=== PATIENT | female | born 1965 | race Caucasian/White ===

== ENCOUNTER → 2018-09-03 | Day surgery (SDC) | payer OTHER ==
[~2018-09-03] MED LIST: FLUO20CA8 PO; IV RINGERS,LACTATED 1000ML 1,000 ML IV SCH; LIDOCAINE 2% PF 5 ML VIAL. ONE; PROPOFOL 10 MG/ML (20ML) VIAL. IV ONE; PROPOFOL 20 ML IV ONE
[2018-09-03 16:47] VITALS: BP 126/59
--- NOTE | 2018-09-04 13:46 | HP ---
ADMIT DATE: 09/03/2018 REFERRING PHYSICIAN: Dr. Hudson Diaz. REASON FOR CONSULTATION: Dysphagia. HISTORY OF PRESENT ILLNESS: A 52-year-old female with past medical history significant for reflux, is seen with dysphagia for solids, mainly in the subcervical location. She has lost 8 pounds in the past month. Pepcid and Prilosec have been taken with modest improvement in her symptoms. Risk factors for reflux are positive for caffeine, but negative for alcohol and nicotine. No bleeding has been encountered. With continued symptoms, she requests additional evaluation. FAMILY HISTORY: Nonrevealing as she is adopted. PAST MEDICAL HISTORY: Significant for reflux. ALLERGIES: MORPHINE. MEDICATIONS: Include Prilosec. SOCIAL HISTORY: She is a nonsmoker, nondrinker. PAST SURGICAL HISTORY: Significant for hysterectomy and endometriosis. REVIEW OF SYSTEMS: Per records. PHYSICAL EXAMINATION: GENERAL: Reveals a well-nourished, well-developed female who is alert and cooperative, in no acute distress. VITAL SIGNS: Temperature 97.5, pulse 70, respirations 20. HEENT: Normocephalic and atraumatic head. Pupils and extraocular movements not tested. Sclerae anicteric. NECK: Supple. LUNGS: Clear. CARDIOVASCULAR: Reveals S1, S2 without S3, S4 or appreciable murmur. ABDOMEN: Soft abdomen, normal bowel sounds without appreciable hepatosplenomegaly. EXTREMITIES: Reveal no cyanosis, clubbing or edema. The infraumbilical hysterectomy incision is noted. IMPRESSION: Dysphagia with GERD. Differential includes achalasia, malignancy, Murillo's, peptic stricture, eosinophilic esophagitis, Schatzki ring, presbyesophagus. Therefore, recommend upper endoscopy with possible biopsy and dilatation. Risks, benefits of procedure including risk of hemorrhage and perforation during the operation have been discussed with the patient who is willing to proceed at this time. SON DEWITT MD DR: ROBERT/lesa JOB#: [id number] / [id number] ecc RECORDS, MEDICAL
--- NOTE | 2018-09-05 16:07 | PATHOLOGY ---
[facility] Accession Number: [id number] . 01 Material submitted: . esophagus - DISTAL ESOPHAGUS BIOPSY. Modifiers: distal . 01 Clinical history: . Dysphagia . 02 Diagnosis: Esophageal biopsies, distal esophagus: - Segments of hyperplastic squamous esophageal mucosa showing focal acute inflammation, ulceration, and acute inflammatory exudate, consistent with reflux esophagitis with ulceration. 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 02 Comment: Sections of the distal esophageal biopsy reveal segments of tangentially oriented, hyperplastic squamous esophageal mucosa showing focal ulceration, acute inflammation, and acute inflammatory exudate. There are a few scattered intraepithelial eosinophils. There are no viral inclusions identified. The findings are consistent with reflux esophagitis with ulceration. There is no evidence of Murillo's change, dysplasia, or malignancy. 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 02 Electronically signed: . Rafal Cuevas MD, Pathologist NPI- [id number] . 01 Gross description: . The specimen is received in formalin, labeled "Schimke, Jasmina, distal esophagus BX rule out Murillo's" and consists of multiple fragments of jolley-light brown tissue measuring 0.9 x 0.4 x 0.2 cm in aggregate which are entirely submitted in A1. (SDY; 09/04/2018) SYU/SYU . 02 Pathologist provided ICD-10: K20.9, K22.10, K21.0 . 02 CPT . 429166 Specimen Comment: A courtesy copy of this report has been sent to Specimen Comment: [phone], . Specimen Comment: Report sent to / DR STRONG Performed at: 01 [facility] [address], [place], [place] [id number] MD Julius Salvador MD Phone: [phone] Performed at: 02 [facility] [address] [place], [place] [id number] MD Rafal Cuevas MD Phone: [phone]
== END ==
LOC: SURG 15:39
PROVIDERS: ATTEND Internal Medicine Gastroenterology
DX: K21.0 Gastro-esophageal reflux disease with esophagitis (principal); K22.2 Esophageal obstruction; Z90.710 Acquired absence of both cervix and uterus; Z88.6 Allergy status to analgesic agent
CPT/HCPCS: 43239; 43450; 88305; J2001; J2704

== ENCOUNTER 2018-12-19 06:00 | Inpatient (IN) | payer OTHER ==
[2018-12-19] VITALS (10 sets, daily range): BP systolic 140–156; BP diastolic 64–82
[~2018-12-19] VITALS: Ht 175.3 cm; Wt 71.7 kg
[~2018-12-19 06:00] MED LIST changes: -IV RINGERS,LACTATED 1000ML 1,000 ML IV SCH; -LIDOCAINE 2% PF 5 ML VIAL. ONE; -PROPOFOL 10 MG/ML (20ML) VIAL. IV ONE; -PROPOFOL 20 ML IV ONE
[2018-12-19] MEDS ORDERED: BUPIVACAINE-EPI 0.5%-1:200000 MPF 30 ML VIAL. INJ ONE (06:30)
[2018-12-19] MEDS: IV RINGERS,LACTATED 1000ML 1,000 ML IV SCH ×2 (06:32→10:28)
[2018-12-19] MEDS ORDERED: HYDROmorphone 2 MG/ML VIAL IV PRN ×3 (07:00→10:30)
[2018-12-19] MEDS ORDERED: LIDOCAINE 1% PF 2 ML VIAL. ID PRN (07:00)
[2018-12-19] MEDS ORDERED: ONDANSETRON PF 4 MG/2 ML VIAL. IV PRN (07:00)
[2018-12-19] MEDS ORDERED: fentaNYL PF VIAL 100 MCG/2 ML VIAL IV PRN (07:00)
[2018-12-19] MEDS ORDERED: PROCHLORPERAZINE 10 MG/2 ML VIAL. IV PRN (07:00)
[2018-12-19] MEDS ORDERED: SURGICEL HEMOSTAT 4X8 EACH. ONE ×2 (07:01→08:34)
[2018-12-19] MEDS ORDERED: ROCURONIUM 50 MG/5 ML VIAL. ONE ×2 (07:09→08:40)
[2018-12-19] MEDS ORDERED: LIDOCAINE 2% PF 5 ML VIAL. ONE (07:09)
[2018-12-19] MEDS ORDERED: PROPOFOL 20 ML IV ONE (07:09)
[2018-12-19] MEDS ORDERED: ONDANSETRON PF 4 MG/2 ML VIAL. ONE (07:09)
[2018-12-19] MEDS ORDERED: FAMOTIDINE 20 MG/2 ML VIAL ONE (07:09)
[2018-12-19] MEDS ORDERED: DEXAMETHASONE SOD PHOS 4 MG/ML VIAL ONE (07:09)
[2018-12-19] MEDS ORDERED: SUCCINYLCHOLINE 200 MG/10 ML VIAL. ONE (07:09)
[2018-12-19] MEDS ORDERED: fentaNYL PF VIAL 100 MCG/2 ML VIAL ONE ×2 (07:10→08:19)
[2018-12-19] MEDS ORDERED: MIDAZOLAM HCL/PF 2 MG/2 ML VIAL. ONE (07:10)
[2018-12-19] MEDS ORDERED: SEVOFLURANE > 120 MINUTES. IH ONE (07:52)
[2018-12-19] MEDS ORDERED: ceFAZolin 2GM PREMIX 2 GM/50 ML BAG IV ONE (08:00)
[2018-12-19] MEDS ORDERED: PHENYLEPHRINE in 0.9% NACL PF 1 MG/10 ML SYRINGE. IV ONE (08:06)
[2018-12-19] MEDS ORDERED: NEOSTIGMINE 10 MG/10 ML VIAL. ONE (09:34)
[2018-12-19] MEDS ORDERED: GLYCOPYRROLATE 1 MG/5 ML VIAL. ONE ×2 (09:34→09:46)
[2018-12-19] MEDS ORDERED: KETOROLAC 30 MG/ML VIAL. ONE (09:35)
[2018-12-19] MEDS: IV NORMAL SALINE 1000ML BAG 1,000 ML IV SCH (10:11)
--- NOTE | 2018-12-19 10:11 | PDOC4 ---
Operative Note Operative Note Operative Note Preoperative Diagnosis: Hiatal hernia with gastroesophageal reflux disease Postoperative Diagnosis: Same Procedure: Laparoscopic repair of hiatal hernia with Deshawn fundoplication Surgeon: Kareem Danielson.: Dr. Bauer Anesthesia: Gen. Estimated Blood Loss: 25 mL Specimen: perigastric tissue, GE junction tissue Drains: None Complications: None Indications: The patient is a 53 who is referred following the GI evaluation for reflux symptoms and dysphagia. Evaluation identified a hiatal hernia with the entire stomach present in the chest. She was referred for surgical repair. The risks of surgery were discussed which include bleeding, infection, recurrent herniation, gastric or esophageal perforation, visceral injury, recurrent reflux, gas bloat syndrome, dysphasia, potential need for additional surgeries or procedures. She understands and would like to proceed. Description: The patient was taken to the operating room and placed supine on the operating table. General anesthesia was performed. The patient was then placed in lithotomy. The abdomen was prepped with ChloraPrep and draped in a standard surgical fashion. A small incision was made superior to and to the patient's left of the umbilicus through which a visualized 5 mm trocar was inserted. A pneumoperitoneum was then created and the laparoscope was introduced. In the right lateral abdomen a 12 mm trocar was inserted through which a soft fan retractor was used to elevate the left lobe of the liver. In the right upper quadrant a 5 mm trocar was inserted. In the left upper quadrant an 11 mm trocar was inserted while in the left lateral abdomen a 5 mm trocar was inserted. Attention was then directed to the diaphragmatic hiatus. A small hiatal hernia was present. The pars flacida was opened with the harmonic scalpel and dissection was continued to the denny. We mobilized the distal esophagus away from the denny. We continued mobilizing superiorly well into the mediastinum. The gastrocolic omentum was then opened with the Harmonic scalpel in the upper portion of the greater curvature. We then freed up the upper part of the greater curvature and fundus using the harmonic scalpel. Large blood vessels were doubly clipped and divided. The dissection continued all the way back up to the left denny and any remaining splenic attachments were also mobilized. There was an oozing spot near the spleen which was controlled with surgicel. A Carola drain was then placed around the esophagus at the GE junction and clips were applied holding the [place] in place. With retraction on the Carola we were able to continue freeing up any remaining attachments particularly in the posterior location. At this point the GE junction was well within the abdominal cavity. The left and right denny were then reapproximated with interrupted 2-0 silk sutures using the Endo Stitch device. Stitches were applied both anteriorly and posteriorly allowing for closure of the hernia defec t. The fundus was then wrapped around in a 360� fashion creating the fundoplication. A shoeshine maneuver was used to ensure no twists or kinks. An initial 2-0 Ethibond suture was used securing the fundic lips together. Another suture was placed superior to this which incorporated a small bite of the anterior esophagus. An additional suture was then placed inferiorly completing the fundoplication. At this point hemostasis was good, the hernia was well repaired, and the fundoplication was intact with a nice orientation. The 11 and 12 mm trochars were then removed and the fascia closed with 0 Vicryl using an Endo Close. The remaining ports were removed and the pneumoperitoneum was relieved. Skin at all incisions was closed with 4-0 Monocryl. Steri-Strips and dressings were applied. The patient tolerated the procedure well. SON DE JESUS MD Dec 19, 2018 10:11
[2018-12-19] MEDS ORDERED: NALOXONE 0.4 MG/ML VIAL. IV PRN (10:15)
[2018-12-19] MEDS ORDERED: 0.9 % SODIUM CHLORIDE 10 ML DISP.SYRIN. IV PRN (10:15)
[2018-12-19] MEDS: fentaNYL PF VIAL 100 MCG/2 ML VIAL IV PRN ×2 (10:29→11:03)
[2018-12-19] MEDS: IV 1/2 NORMAL SALINE 1,000 ML IV SCH ×2 (11:52→20:27)
[2018-12-19] MEDS: HYDROmorphone 2 MG/ML VIAL IV PRN ×5 (13:19→22:55)
[2018-12-19] MEDS ORDERED: PHENOL ORAL SPRAY 177ML BOTTLE. PO PRN (15:30)
[2018-12-19] MEDS: ONDANSETRON PF 4 MG/2 ML VIAL. IV PRN (20:20)
[2018-12-20] MEDS: HYDROmorphone 2 MG/ML VIAL IV PRN ×5 (02:03→16:15)
[2018-12-20 03:00] VITALS: BP 148/92
[2018-12-20 07:00] VITALS: BP 140/79
[2018-12-20] MEDS: IV 1/2 NORMAL SALINE 1,000 ML IV SCH ×2 (07:07→16:14)
--- NOTE | 2018-12-20 08:57 | PDOC ---
SYLVESTER BREWSTER APRN 12/20/18 0857: SURGICAL PROGRESS NOTE Subjective no reflux symptoms headache, ear ache shoulder pain no n/v Vital Signs Vital Signs Date Time Temp Pulse Resp B/P (MAP) Pulse Ox O2 Delivery O2 Flow Rate FiO2 12/20/18 07:54 18 Nasal Cannula 2.0 12/20/18 07:00 98.4 77 140/79 (99) 92 98.4 I&O Intake and Output 12/20/18 07:00 Intake Total 1150 ml Output Total 325 ml Balance 825 ml Intake IV Total 1150 ml Output Urine Total 300 ml Estimated Blood Loss 25 ml # Voids 4 General: Alert, Oriented X3, Cooperative, No acute distress Abdomen: Soft, Other (ND, lap sites dressings dry) Assessment/Plan s/p ian fundoplication clears, no carbonation oral pain meds increase activity SNO DE JESUS MD 12/20/18 1532: SURGICAL PROGRESS NOTE Assessment/Plan agree with above SYLVESTER BREWSTER APRN Dec 20, 2018 08:57 SON DE JESUS MD Dec 20, 2018 15:32
[2018-12-20] MEDS: HYDROcodon/APAP 7.5/325MG ORAL 15 ML SOLUTION PO PRN ×2 (09:09→17:49)
[2018-12-20] MEDS: IV NORMAL SALINE 1000ML BAG 1,000 ML IV SCH (10:11)
[2018-12-20 11:00] VITALS: BP 134/59
[2018-12-20] MEDS ORDERED: ZOLPIDEM 5 MG TABLET. PO PRN (14:00)
[2018-12-20 15:00] VITALS: BP 139/74
[2018-12-20] MEDS: ONDANSETRON PF 4 MG/2 ML VIAL. IV PRN (16:16)
[2018-12-20 19:00] VITALS: BP 130/70
[2018-12-20] MEDS ORDERED: ACETAMINOPHEN 325 MG TABLET. PO PRN (20:15)
[2018-12-20] MEDS: KETOROLAC 30 MG/ML VIAL. IV PRN (20:52)
[2018-12-20 23:00] VITALS: BP 142/65
[2018-12-21] MEDS: IV 1/2 NORMAL SALINE 1,000 ML IV SCH (01:23)
[2018-12-21 02:53] VITALS: BP 124/78
[2018-12-21] MEDS: HYDROcodon/APAP 7.5/325MG ORAL 15 ML SOLUTION PO PRN ×2 (04:18→13:46)
[2018-12-21 07:00] VITALS: BP 138/70
[2018-12-21] MEDS: KETOROLAC 30 MG/ML VIAL. IV PRN (07:36)
[2018-12-21] MEDS ORDERED: FLUoxetine HCL 20 MG CAPSULE PO SCH (09:00)
[2018-12-21] MEDS ORDERED: CETIRIZINE HCL 10 MG TABLET. PO PRN (09:15)
[2018-12-21 11:00] VITALS: BP 132/72
--- NOTE | 2018-12-21 12:37 | PDOC ---
PROGRESS NOTES Subjective Subjective getting better, no reflux symptoms, only complaint is headache Objective Objective Vital Signs Date Time Temp Pulse Resp B/P (MAP) Pulse Ox O2 Delivery O2 Flow Rate FiO2 12/21/18 11:00 98.8 73 18 132/72 (92) 93 Room Air 98.8 12/21/18 04:18 2.0 Intake and Output 12/21/18 07:00 Intake Total 2145 ml Balance 2145 ml Intake Oral 770 ml IV Total 1375 ml # Voids 8 # Bowel Movements 1 Physical Exam Abdomen: Soft Assessment Assessment POD 2 lap ian, HH repair Plan Plan of Care discharge Comment Review of Relevant I have reviewed the following items kriss (where applicable) has been applied. Medications Current Medications Bupivacaine HCl/ Epinephrine Bitart (Sensorcain-Epi 0.5%-1:084859 Mpf) 30 ml 1X ONCE INJ Last administered on 12/19/18at 09:45; Start 12/19/18 at 06:30; Stop 12/19/18 at 06:31; Status DC Ondansetron HCl (Zofran) 4 mg PRN Q6HRS PRN IV NAUSEA/VOMITING; Start 12/19/18 at 07:00; Stop 12/20/18 at 06:59; Status DC Fentanyl Citrate (Fentanyl 2ml Vial) 25 mcg PRN Q5MIN PRN IV MILD PAIN 1-3; Start 12/19/18 at 07:00; Stop 12/20/18 at 06:59; Status DC Fentanyl Citrate (Fentanyl 2ml Vial) 50 mcg PRN Q5MIN PRN IV MODERATE TO SEVERE PAIN Last administered on 12/19/18at 11:03; Start 12/19/18 at 07:00; Stop 12/20/18 at 06:59; Status DC Ringer's Solution 1,000 ml @ 30 mls/hr Q24H IV Last administered on 12/19/18at 10:29; Start 12/19/18 at 07:00; Stop 12/19/18 at 18:59; Status DC Lidocaine HCl (Xylocaine-Mpf 1% 2ml Vial) 2 ml PRN 1X PRN ID PRIOR TO IV START; Start 12/19/18 at 07:00; Stop 12/20/18 at 06:59; Status DC Hydromorphone HCl (Dilaudid) 0.5 mg PRN Q10MIN PRN IV SEV PAIN, Second choice; Start 12/19/18 at 07:00; Stop 12/20/18 at 06:59; Status DC Prochlorperazine Edisylate (Compazine) 5 mg PACU PRN PRN IV NAUSEA, MRX1; Start 12/19/18 at 07:00; Stop 12/20/18 at 06:59; Status DC Cefazolin Sodium/ Dextrose 50 ml @ 100 mls/hr 1X PREOP PRN IV PRIOR TO PROCEDURE Last administered on 12/19/18at 08:00; Start 12/19/18 at 06:00; Stop 12/19/18 at 18:00; Status DC Cellulose (Surgicel Hemostat 4x8) 1 each STK-MED ONCE .ROUTE Last administered on 12/19/18at 08:38; Start 12/19/18 at 07:01; Stop 12/19/18 at 07:01; Status DC Propofol 20 ml @ As Directed STK-MED ONCE IV ; Start 12/19/18 at 07:09; Stop 12/19/18 at 07:09; Status DC Dexamethasone Sodium Phosphate (Decadron) 4 mg STK-MED ONCE .ROUTE ; Start 12/19/18 at 07:09; Stop 12/19/18 at 07:09; Status DC Famotidine (Pepcid Vial) 20 mg STK-MED ONCE .ROUTE ; Start 12/19/18 at 07:09; Stop 12/19/18 at 07:09; Status DC Lidocaine HCl (Lidocaine Pf 2% Vial) 5 ml STK-MED ONCE .ROUTE ; Start 12/19/18 at 07:09; Stop 12/19/18 at 07:10; Status DC Ondansetron HCl (Zofran) 4 mg STK-MED ONCE .ROUTE ; Start 12/19/18 at 07:09; Stop 12/19/18 at 07:10; Status DC Succinylcholine Chloride (Anectine) 200 mg STK-MED ONCE .ROUTE ; Start 12/19/18 at 07:09; Stop 12/19/18 at 07:10; Status DC Rocuronium [place] (Zemuron) 50 mg STK-MED ONCE .ROUTE ; Start 12/19/18 at 07:09; Stop 12/19/18 at 07:10; Status DC Fentanyl Citrate (Fentanyl 2ml Vial) 100 mcg STK-MED ONCE .ROUTE ; Start 12/19 at 07:10; Stop 12/19/18 at 07:10; Status DC Midazolam HCl (Versed) 2 mg STK-MED ONCE .ROUTE ; Start 12/19/18 at 07:10; Stop 12/19/18 at 07:10; Status DC Sevoflurane (Ultane) 90 ml STK-MED ONCE IH ; Start 12/19/18 at 07:52; Stop 12/19/18 at 07:52; Status DC Phenylephrine HCl (PHENYLEPHRINE in 0.9% NACL PF) 1 mg STK-MED ONCE IV ; Start 12/19/18 at 08:06; Stop 12/19/18 at 08:07; Status DC Fentanyl Citrate (Fentanyl 2ml Vial) 100 mcg STK-MED ONCE .ROUTE ; Start 12/19/18 at 08:19; Stop 12/19/18 at 08:19; Status DC Cellulose (Surgicel Hemostat 4x8) 1 each STK-MED ONCE .ROUTE Last administered on 12/19/18at 08:38; Start 12/19/18 at 08:34; Stop 12/19/18 at 08:35; Status DC Rocuronium [place] (Zemuron) 50 mg STK-MED ONCE .ROUTE ; Start 12/19/18 at 08:40; Stop 12/19/18 at 08:40; Status DC Neostigmine Methylsulfate (Bloxiverz) 10 mg STK-MED ONCE .ROUTE ; Start 12/19/18 at 09:34; Stop 12/19/18 at 09:34; Status DC Glycopyrrolate (Robinul) 1 mg STK-MED ONCE .ROUTE ; Start 12/19/18 at 09:34; Stop 12/19/18 at 09:34; Status DC Ketorolac Tromethamine (Toradol 30mg Vial) 30 mg STK-MED ONCE .ROUTE ; Start 12/19/18 at 09:35; Stop 12/19/18 at 09:35; Status DC Glycopyrrolate (Robinul) 1 mg STK-MED ONCE .ROUTE ; Start 12/19/18 at 09:46; Stop 12/19/18 at 09:46; Status DC Sodium Chloride (Normal Saline Flush) 3 ml QSHIFT PRN IV AFTER MEDS AND BLOOD DRAWS; Start 12/19/18 at 10:15 Sodium Chloride 1,000 ml @ 100 mls/hr Q10H IV Last administered on 12/21/18at 01:23; Start 12/19/18 at 10:11 Naloxone HCl (Narcan) 0.4 mg PRN Q2MIN PRN IV SEE INSTRUCTIONS; Start 12/19/18 at 10:15 Sodium Chloride 1,000 ml @ 25 mls/hr Q24H IV ; Start 12/19/18 at 10:11 Hydromorphone HCl (Dilaudid) 0.2 mg PRN Q2HRS PRN IV PAIN; Start 12/19/18 at 10:15 Ondansetron HCl (Zofran) 4 mg PRN Q6HRS PRN IV NAUESA, 1ST CHOICE Last administered on 12/20/18at 16:16; Start 12/19/18 at 10:15 Hydromorphone HCl (Dilaudid) 0.4 mg PRN Q2HRS PRN IV PAIN Last administered on 12/19/18 11:24; Start 12/19/18 at 10:30 Hydromorphone HCl (Dilaudid) 0.6 mg PRN Q2HRS PRN IV PAIN Last administered on 12/20/18 16:16; Start 12/19/18 at 10:30 Phenol (Chloraseptic) 1 spray PRN Q2HR PRN PO SORE THROAT Last administered on 12/19/18at 15:55; Start 12/19/18 at 15:30 Acetaminophen/ Hydrocodone Bitart (Lortab 7.5-325/ 15ml Oral Solution) 15 ml PRN Q6HRS PRN PO PAIN Last administered on 12/21/18at 04:18; Start 12/20/18 at 09:00 Cefazolin Sodium/ Dextrose (Ancef 2gm Premix) 2 gm STK-MED ONCE IV ; Start 12/19/18 at 08:00; Stop 12/20/18 at 12:59; Status DC Fluoxetine HCl (PROzac) 20 mg DAILY PO Last administered on 12/21/18at 09:40; Start 12/21/18 at 09:00 Zolpidem Tartrate (Ambien) 5 mg PRN QHS PRN PO INSOMNIA Last administered on 9/20/19at 20:52; Start 12/20/18 at 14:00 Ketorolac Tromethamine (Toradol 30mg Vial) 30 mg PRN Q6HRS PRN IV PAIN Last administered on 12/21/18at 07:36; Start 12/20/18 at 20:15; Stop 12/25/18 at 20:14 Acetaminophen (Tylenol) 650 mg PRN Q4HRS PRN PO MILD PAIN / TEMP; Start 12/20/18 at 20:15 Cetirizine HCl (ZyrTEC) 10 mg PRN DAILY PRN PO ALLERGIES Last administered on 12/21/18at 09:40; Start 12/21/18 at 09:15 Active Scripts Active Reported Fluoxetine Hcl 20 Mg Capsule 1 Cap PO DAILY Vitals/I & O Vital Sign - Last 24 Hours 12/20/18 12/20/18 12/20/18 12/20/18 15:00 16:16 17:06 17:49 Temp 98.8 98.8 Pulse 82 Resp 14 16 16 16 B/P (MAP) 139/74 (95) Pulse Ox 94 O2 Delivery Room Air Room Air Room Air Room Air 12/20/18 12/20/18 12/20/18 12/20/18 19:00 20:30 23:00 23:04 Temp 98.5 98.7 98.5 98.7 Pulse 83 60 Resp 16 16 14 B/P (MAP) 130/70 (90) 142/65 (90) Pulse Ox 92 92 92 O2 Delivery Nasal Cannula Nasal Cannula Nasal Cannula Nasal Cannula O2 Flow Rate 2.0 2.0 2.0 2.0 12/21/18 12/21/18 12/21/18 12/21/18 02:53 04:18 07:00 07:19 Temp 98.1 97.9 98.1 97.9 Pulse 85 76 Resp 16 16 18 18 B/P (MAP) 124/78 (93) 138/70 (92) Pulse Ox 93 90 O2 Delivery Nasal Cannula Nasal Cannula Room Air Room Air O2 Flow Rate 2.0 2.0 12/21/18 11:00 Temp 98.8 98.8 Pulse 73 Resp 18 B/P (MAP) 132/72 (92) Pulse Ox 93 O2 Delivery Room Air Intake and Output 12/20/18 12/20/18 12/21/18 15:00 23:00 07:00 Intake Total 320 ml 50 ml 1775 ml Balance 320 ml 50 ml 1775 ml SON DE JESUS MD Dec 21, 2018 12:37
--- NOTE | 2018-12-21 12:39 | DISCH ---
DISCHARGE INSTRUCTIONS Condition on Discharge Condition on Discharge: Unstable Activity After Discharge Activity Instructions for Disc: Other, see below (no lifting over 20 lbs) Diet after Discharge Diet after Discharge: GI Soft Follow-Up Follow up with: Dr De Jesus in 2 weeks, call for appt [phone] SON DE JESUS MD Dec 21, 2018 12:39
--- NOTE | 2018-12-21 12:40 | PDOC3 ---
Discharge Summary Visit Information Date of Admission: Dec 19, 2018 Date of Discharge: Dec 21, 2018 Admitting Diagnosis: Hiatal hernia with GERD Brief Hospital Course Allergies Allergies Coded Allergies Type Severity Reaction Last Updated Verified morphine Allergy Intermediate Hives 12/19/18 Yes Vital Signs Vital Signs Date Time Temp Pulse Resp B/P (MAP) Pulse Ox O2 Delivery O2 Flow Rate FiO2 12/21/18 11:00 98.8 73 18 132/72 (92) 93 Room Air 98.8 12/21/18 04:18 2.0 Brief Hospital Course Ms. Hawkins is a 53 old female who was admitted for surgery for repair of a hiatal hernia. She underwent a laparoscopic hiatal hernia repair with ian fundoplication on 12/19/18. Her postoperative course was uneventful and she was discharged on POD 2. Discharge Information Condition at Discharge: Improved Follow Up: Weeks (2 weeks) Disposition/Orders: D/C to Home Scheduled Fluoxetine Hcl (Fluoxetine Hcl) 20 Mg Capsule, 1 CAP PO DAILY for DEPRESSION, #90 Ref 1 (Reported) Entered as Reported by: Vashti Haywood on 09/03/18 1556 Last Taken: Unknown Dose on 12/18/18 Last Action: Continued on 12/20/18 1348 by YARIEL BALTAZAR SCOTT D MD Dec 21, 2018 12:40
--- NOTE | 2018-12-21 14:15 | NUR ---
Discharge orders placed. Discharge medications/instructions discussed with pt/pt . Rx hydrocodone elixer 7.5/325 given to pt . Explained rx will need to be filled for pain management. Verbalized/wrote next pain medication due time. Pt verbalized understanding. Discussed pt will need to make f/u appt with Dr. Serna x2 weeks. Dr. Serna card with phone number and location given to pt . Discussed s/s infection/incision care. Pt verbalized understanding. IV removed by KELVIN Bermeo without complications. Elvie wheeled pt to hospital exit accompanied by without complications.
--- NOTE | 2018-12-23 17:07 | PATHOLOGY ---
[facility] Accession Number: [id number] . 01 Material submitted: . PART A: stomach - PERIGASTRIC TISSUE PART B: colon - GASTROESOPHAGEAL JUNCTION TISSUE . 01 Clinical history: . Hiatal hernia with gastroesophageal reflux . 02 Diagnosis: A. 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 . B. Segments (2) of fibroadipose tissue and lymph nodes, gastroesophageal junction tissue: - Multiple lymph nodes showing reactive lymphoid hyperplasia. ([facility] 12/23/2018) [facility] 12/23/2018 1618 Local . 02 Comment: There is no evidence of malignancy. ([facility] 12/23/2018) . 02 Electronically signed: . Rafal Cuevas MD, Pathologist NPI- [id number] . 01 Gross description: . A. Received in formalin labeled "Lilliamke, Jasmina, perigastric tissue," is a partially encapsulated segment of yellow-brown, lobulated adipose tissue measuring 4.3 x 1.8 x 0.5 cm in greatest dimensions. Palpation of the tissue segment reveals a firm possible lymph node measuring 0.8 x 0.5 x 0.5 cm. Sectioning through the possible lymph node reveals firm, pale yellow cut surfaces. Sectioning through the remainder of the specimen reveals lobular, yellow-brown cut surfaces. The entire quadrisected possible lymph node and additional territory account representative sections are submitted in cassette A1. . B. Received in formalin labeled "Schimke, Jasmina, gastroesophageal junction tissue," are two irregular segments of partially encapsulated, yellow-brown lobulated adipose tissue measuring 1.3 x 1.0 x 0.3 cm and 3.1 x 2.4 x 1.0 cm in greatest dimensions. Palpation of the larger segment reveals multiple firm areas. Sectioning through the smaller segment reveals yellow-brown, lobular cut surfaces. Sectioning through the larger segment reveals eight firm, jolley-brown possible lymph nodes ranging from 0.2 to 1.3 cm in maximum dimension. The remaining cut surfaces are lobular and yellow-brown in appearance. The largest possible lymph node is serially sectioned and submitted entirely in cassette B1. The remaining possible lymph nodes are submitted entirely in cassettes B2 and B3. Additional territory account representative soft tissue from both segments is submitted in cassette B4. ([facility]; 12/20/2018) XDC/XDC 12/20/2018 0950 Local . 02 Pathologist provided ICD-10: R59.9, K44.9, K21.0 . 02 CPT . 706271, 413718 Specimen Comment: A courtesy copy of this report has been sent to Specimen Comment: [phone], . Specimen Comment: Report sent to / DR STRONG Performed at: 01 [facility] [address], [place] [id number] MD Julius Salvador MD Phone: [phone] Performed at: 02 [facility] [address] [place], [place] [id number] MD Rafal Cuevas MD Phone: [phone]
== END 2018-12-21 14:30 | disposition home or self-care (01) | DRG 328 ==
LOC: SURG 06:00 → 4 NORTH 10:12
PROVIDERS: ADMIT Surgery; ATTEND Surgery
PROC: 0BQT4ZZ Repair Diaphragm, Percutaneous Endoscopic Approach (ICD-10-PCS; 2018-12-19)
PROC: 0DV44ZZ Restriction of Esophagogastric Junction, Percutaneous Endoscopic Approach (ICD-10-PCS; principal; 2018-12-19 07:30)
DX: K44.9 Diaphragmatic hernia without obstruction or gangrene (principal); K21.9 Gastro-esophageal reflux disease without esophagitis; Z88.8 Allergy status to other drugs, medicaments and biological substances; Z79.899 Other long term (current) drug therapy
CPT/HCPCS: 88305; A7015; J0330; J0696; J1100; J1170; J1885; J2001; J2250; J2370; J2405; J2704; J2710; J3010; J3490; J7030; J7120; G0378

== ENCOUNTER → 2020-01-28 | Outpatient (CLI) | payer BC ==
[~2020-01-28] MED LIST changes: +FLUO20CA20 PO; -FLUO20CA8 PO
== END ==
LOC: LAB 06:30
PROVIDERS: ATTEND Internal Medicine Gastroenterology
DX: Z01.812 Encounter for preprocedural laboratory examination (principal); Z20.828 Contact with and (suspected) exposure to other viral communicable diseases; Z12.11 Encounter for screening for malignant neoplasm of colon
CPT/HCPCS: U0003

== ENCOUNTER → 2020-01-30 | Day surgery (SDC) | payer BC ==
[~2020-01-30] MED LIST changes: +IV RINGERS,LACTATED 1000ML 1,000 ML IV ONE; +LIDOCAINE 2% PF 5 ML VIAL. ONE; +PROPOFOL 10 MG/ML (20ML) VIAL. IV ONE
[2020-01-30 08:11] VITALS: BP 121/54
--- NOTE | 2020-01-30 09:12 | CONS ---
DATE OF CONSULTATION: 01/30/2020 REFERRING PHYSICIAN: Dr. Diaz. REASON FOR CONSULTATION: Abdominal pain and reflux. HISTORY OF PRESENT ILLNESS: A 54-year-old female with past medical history significant for reflux, heartburn, dysphagia, is seen with recurrent epigastric pain felt to be associated with her hiatal hernia. She has had a globus sensation and cervical dysphagia, mainly for solids and not for liquids. She also notes episodes of pain which lasts for several hours and in the epigastric region associated with bloating. No family history is available as she is adopted. With continued issues, she requests additional evaluation. PAST MEDICAL HISTORY: GERD, dysphagia. ALLERGIES: MORPHINE. MEDICATIONS: Fluoxetine. FAMILY HISTORY: Unavailable. She is adopted. SOCIAL HISTORY: She is a social drinker, nonsmoker. PAST SURGICAL HISTORY: Status post hysterectomy. REVIEW OF SYSTEMS: Per records. PHYSICAL EXAMINATION: GENERAL: Reveals a well-nourished, well-developed female. VITAL SIGNS: Temperature is 97.3, pulse 70, respirations 20. LUNGS: Clear. CARDIOVASCULAR: Reveals an S1, S2 without S3, S4 or appreciable murmur. ABDOMEN: Reveals a soft abdomen, normal bowel sounds, without appreciable hepatosplenomegaly. IMPRESSION AND RECOMMENDATIONS: Abdominal pain with history of hiatal hernia and gastroesophageal reflux disease. Differential includes Murillo's, peptic ulcer disease, gastroparesis and/or gallbladder disease; therefore, recommend upper endoscopy. Risks and benefits of procedure including risk of hemorrhage and perforation were discussed. The patient is willing to proceed. SON DEWITT MD DR: ROBERT/lesa JOB#: [id number] / [id number] KWABENA Schroeder MD
--- NOTE | 2020-02-03 09:07 | PATHOLOGY ---
[facility] Accession Number: [id number] . 01 Material submitted: . PART A: stomach - GASTRIC ANTRUM BIOPSY R/O H. PYLORI PART B: esophagus - DISTAL ESOPAHGUS BIOPSY. Modifiers: distal . 01 Clinical history: . ABD PAIN . 02 Diagnosis: A. Stomach "antrum", endoscopic biopsy: - Gastric antral mucosa with moderate chronic active gastritis. - Negative for intestinal metaplasia, dysplasia, and malignancy. - Positive for Helicobacter pylori organisms. . B. Esophagus "distal", endoscopic biopsy: - Esophageal squamous mucosa with features of reflux esophagitis. - Negative for intestinal metaplasia, dysplasia, and malignancy. (MLK:pit; 02/02/2020) [facility] 02/03/2020 0809 Local . 02 Electronically signed: . Toshia Veras MD, Pathologist NPI- [id number] . 01 Gross description: . A. Received in formalin labeled "Schimke, Jasmina, gastric antrum BX rule out H. pylori" are multiple jolley-brown soft tissue fragments measuring in aggregate 0.6 x 0.5 x 0.1 cm. The specimen is submitted entirely in A1. . B. Received in formalin labeled "Schimke, Jasmina, distal esophagus BX" are multiple jolley-brown soft tissue fragments measuring in aggregate 0.8 x 0.4 x 0.1 cm. The specimen is submitted entirely in B1. [place] [place] [facility] 01/31/2020 1132 Local . 02 Microscopic: . Immunohistochemical stain results (properly controlled) . Helicobacter pylori (A1) - Positive for organisms. (MLK:pit; 02/02/2020) . 02 Pathologist provided ICD-10: K29.50, B96.81 . 02 CPT . 410499, 972662, W04890 Specimen Comment: A courtesy copy of this report has been sent to [phone] Specimen Comment: [id number] Specimen Comment: Report sent to DR STRONG Performed at: 01 [facility] [address] [place] [id number] MD Darrel Scott MD Phone: [phone] Performed at: [address] [id number] MD Williams Schofield MD Phone: [phone]
== END ==
LOC: ENDOS 06:41
PROVIDERS: ATTEND Internal Medicine Gastroenterology
DX: R10.13 Epigastric pain (principal); K21.00 Gastro-esophageal reflux disease with esophagitis, without bleeding; K29.50 Unspecified chronic gastritis without bleeding; B96.81 Helicobacter pylori [H. pylori] as the cause of diseases classified elsewhere; K31.89 Other diseases of stomach and duodenum; F32.9 Major depressive disorder, single episode, unspecified; Z79.899 Other long term (current) drug therapy; Z90.710 Acquired absence of both cervix and uterus; Z98.890 Other specified postprocedural states; Z72.89 Other problems related to lifestyle; Z88.6 Allergy status to analgesic agent
CPT/HCPCS: 43239; 88305; 88342; J2704

== ENCOUNTER → 2020-02-13 | Outpatient (CLI) | payer BC ==
[2020-01-30 08:11] VITALS: BP 121/54
[~2020-02-13] VITALS: Ht 175.3 cm; Wt 74.8 kg
[~2020-02-13] MED LIST changes: -IV RINGERS,LACTATED 1000ML 1,000 ML IV ONE; -LIDOCAINE 2% PF 5 ML VIAL. ONE; -PROPOFOL 10 MG/ML (20ML) VIAL. IV ONE; +SINCALIDE 1.5 MCG in IV NORMAL SALINE 50ML 30 ML IV ONE
--- NOTE | 2020-02-13 09:44 | RAD ---
Examination: ABDOMEN LTD History: EPIGASTRIC PAIN Comparison/Correlation: None Findings: Mild fatty infiltration of the liver is present. Portal venous flow is unremarkable. Gallbladder is unremarkable with no cholelithiasis or findings to suggest cholecystitis. Inferior vena cava is unremarkable. Proximal pancreas is normal. Distal pancreas is obscured by bowel gas. Right kidney measures 9.6 x 4.7 cm x 4 cm. No right hydronephrosis. Right renal upper pole contour and cortex are unremarkable. Left renal inferior pole is not fully visualized due to overlying bowel gas. Contour and echotexture are unremarkable. Common bile duct is unremarkable. No biliary dilatation. Impression: Fatty infiltration of the liver. Electronically signed by: Billy Mcneal MD (02/13/2020 9:41 AM) [id number]
--- NOTE | 2020-02-13 10:43 | RAD ---
Examination: Hepatobiliary Scan: History: Epigastric pain. Technique: 5.5 mCi technetium 99m Choletec was administered intravenously and spot views were obtained on the gamma camera for a Nuclear Medicine hepatobiliary scan. 1.5 mcg of CCK drip was administered over 30 minutes and the region of interest was drawn around the gallbladder and gallbladder ejection fraction was calculated. Findings: There is rapid uptake of activity from the blood pool and concentration in the liver. Activity seen in the gallbladder and small bowel. There is a rapid response of the gallbladder to CCK and the gallbladder ejection fraction is 87% which is normal. Impression: Normal hepatobiliary scan. Normal gallbladder function. Electronically signed by: Chepe Montgomery MD (02/13/2020 10:40 AM) [id number]
== END ==
LOC: US 06:32
PROVIDERS: ATTEND Internal Medicine Gastroenterology
DX: K76.0 Fatty (change of) liver, not elsewhere classified (principal)
CPT/HCPCS: 76705; 78227; A9537; J2805

== ENCOUNTER → 2020-03-18 | Outpatient (CLI) | payer BC ==
[2020-01-30 08:11] VITALS: BP 121/54
[~2020-03-18] MED LIST changes: +OXYC1TAB15 PO; -SINCALIDE 1.5 MCG in IV NORMAL SALINE 50ML 30 ML IV ONE
== END ==
LOC: LAB 15:38
PROVIDERS: ATTEND Surgery
DX: Z01.812 Encounter for preprocedural laboratory examination (principal); K82.8 Other specified diseases of gallbladder; Z20.828 Contact with and (suspected) exposure to other viral communicable diseases
CPT/HCPCS: U0003

== ENCOUNTER 2020-03-23 06:16 | Day surgery (SDC) | payer BC ==
[~2020-03-23] VITALS: Ht 175.3 cm; Wt 81.0 kg
[~2020-03-23 06:16] MED LIST changes: -OXYC1TAB15 PO
[2020-03-23] MEDS ORDERED: LIDOCAINE 2% PF 5 ML VIAL. ONE (06:57)
[2020-03-23] MEDS ORDERED: fentaNYL PF VIAL 250 MCG/5 ML VIAL ONE (06:57)
[2020-03-23] MEDS ORDERED: ROCURONIUM 50 MG/5 ML VIAL. ONE (06:57)
[2020-03-23] MEDS ORDERED: PROPOFOL 10 MG/ML (20ML) VIAL. IV ONE (06:57)
[2020-03-23] MEDS ORDERED: DEXAMETHASONE SOD PHOS 4 MG/ML VIAL ONE (06:57)
[2020-03-23] MEDS ORDERED: MIDAZOLAM HCL/PF 2 MG/2 ML VIAL. ONE (06:57)
[2020-03-23] MEDS ORDERED: GLYCOPYRROLATE 1 MG/5 ML VIAL. ONE (06:58)
[2020-03-23] MEDS ORDERED: NEOSTIGMINE METHYLSULFATE 5 MG/5 ML SYRINGE. ONE (06:58)
[2020-03-23] MEDS ORDERED: ONDANSETRON PF 4 MG/2 ML VIAL. ONE (06:58)
[2020-03-23] MEDS ORDERED: LIDOCAINE 1% PF 2 ML VIAL. ID PRN (07:00)
[2020-03-23] MEDS ORDERED: fentaNYL PF VIAL 100 MCG/2 ML VIAL IVP PRN ×2 (07:00)
[2020-03-23] MEDS ORDERED: MORPHINE SULFATE 2 MG/ML VIAL. IVP PRN (07:00)
[2020-03-23] MEDS ORDERED: ONDANSETRON PF 4 MG/2 ML VIAL. IVP PRN (07:00)
[2020-03-23] MEDS ORDERED: IV RINGERS,LACTATED 1000ML 1,000 ML IV SCH (07:00)
[2020-03-23] MEDS ORDERED: PROCHLORPERAZINE 10 MG/2 ML VIAL. IVP PRN (07:00)
[2020-03-23] MEDS ORDERED: HYDROmorphone 2 MG/ML VIAL IVP PRN (07:00)
[2020-03-23] MEDS ORDERED: SURGICEL HEMOSTAT 4X8 EACH. ONE (07:13)
[2020-03-23] MEDS ORDERED: BUPIVACAINE MPF 0.5% 30 ML VIAL. ONE (07:13)
[2020-03-23] MEDS ORDERED: IOHEXOL 300 MG/ML 50 ML VIAL. ONE (07:13)
[2020-03-23] MEDS ORDERED: SEVOFLURANE 31 TO 60 MINUTES. IH ONE (08:09)
[2020-03-23] MEDS ORDERED: KETOROLAC 30 MG/ML VIAL. ONE (08:33)
--- NOTE | 2020-03-23 08:53 | DISCH ---
DISCHARGE INSTRUCTIONS Condition on Discharge Condition on Discharge: Stable Activity After Discharge Activity Instructions for Disc: Other, see below (no lifting over 20 lbs X 2 weeks) Diet after Discharge Diet after Discharge: Regular Wound Incision Care Wound/Incision Care: Other, see below (may remove bandaids tomorrow and shower) Follow-Up Follow up with: Dr De Jesus in 2 weeks in office, call for appt [phone] SON DE JESUS MD Mar 23, 2020 08:53
--- NOTE | 2020-03-23 08:55 | PDOC4 ---
Operative Note Operative Note Operative Note: Preoperative Diagnosis: Biliary dyskinesia Postoperative Diagnosis: Same Procedure: Laparoscopic cholecystectomy with intraoperative cholangiogram Surgeons: Kareem [employer] Polisher: Michelle PERRIN Anesthesia: Gen. Estimated Blood Loss: 10 mL Specimen: Gallbladder to pathology Drains: None Complications: None Indications: The patient is a 54 year old female who after a GI evaluation was referred with suspected biliary dyskinesia. Surgical treatment was offered by means of a laparoscopic cholecystectomy. The risks of surgery were discussed which include bleeding, infection, bile duct injury, bile leak, pain, the potential for additional surgeries or procedures. The patient understands and would like to proceed. Description: The patient was taken to the operating room and laid supine on the operating table. General anesthesia was performed. The abdomen was prepped with ChloraPrep and draped in a standard surgical fashion. A small infraumbilical incision was made with a scalpel. The Veress needle was then inserted and a pneumoperitoneum was then created. A 5 mm trocar was then inserted and the laparoscope was introduced. In the upper midabdomen a 5 mm trocar was inserted and in the right upper quadrant two 2.3 mm mini lap graspers were inserted. The gallbladder was retracted cephalad. The cystic duct was dissected free from surrounding tissues. One clip was placed on the duct near the gallbladder junction. An opening was made in the duct and a cholangiocatheter placed within and secured with a clip. Using contrast dye and fluoroscopy an intraoperative cholangiogram was performed that appeared unremarkable. The clip and catheter were then withdrawn. Three clips were placed on the cystic duct and it was divided. The cystic artery was then identified, dissected free, doubly clipped and divided as well. The gallbladder was then mobilized away from the liver with cautery. The umbilical 5 millimeter trocar was exchanged for an 11 millimeter trocar. The gallbladder was then placed in an endoscopic bag and extracted at the umbilical trocar site. The fascia there was closed with an 0 Vicryl suture. All blood and irrigation fluid was suctioned and hemostasis was good. The remaining ports were removed and the pneumoperitoneum was relieved. The skin incisions were injected with half p ercent Marcaine with epinephrine, and all were closed using 4-0 Monocryl suture. Steri-Strips and dressings were then applied. The patient tolerated the procedure well and was sent to the recovery room in stable condition. At the end of the case all counts were correct. SON DE JESUS MD Mar 23, 2020 08:55
[2020-03-23] MEDS ORDERED: OXYC1TAB15 PO (09:06)
--- NOTE | 2020-03-23 09:08 | RAD ---
Intraoperative cholangiogram 03/23/2020 CLINICAL HISTORY: Laparoscopic cholecystectomy. Four digital spot radiographs of the right upper quadrant abdomen were obtained during an intraoperat rickey cholangiogram. The fluoroscopic time is listed as 0.35 minutes. These images demonstrate contrast opacifying the cystic duct remnant, the common bile duct and to lesser extent the common hepatic iman t and left and right hepatic ducts. No filling defect is definitely seen. Free spillage of contrast i nto the duodenum is noted. IMPRESSION: No filling defect is seen. Electronically signed by: Chas Amador MD (03/23/2020 9:06 AM) [id number]
[2020-03-23] MEDS ORDERED: oxyCODONE/APAP 5/325 1 TAB TABLET PO ONE ×2 (09:15)
[2020-03-23 09:35] VITALS: BP 136/48
--- NOTE | 2020-03-24 22:11 | PATHOLOGY ---
[facility] Accession Number: [id number] . 01 Material submitted: . gallbladder - GALLBLADDER . 01 Clinical history: . BILIARY DYSKINESIA . 02 Diagnosis: "Gallbladder", cholecystectomy: - Chronic cholecystitis. - Lymph node with hyperplasia. ([facility] 03/24/2020) [facility] 03/24/2020 1516 Local . 02 Electronically signed: . Mary Beltran MD, Pathologist NPI- [id number] . 01 Gross description: . Received in formalin labeled "Shruthi, Jasmina, gallbladder" is intact cholecystectomy specimen measuring 5.4 x 2.6 x 2.2 cm. The serosa is smooth, jolley-pink and glistening with a roughened hepatic bed. The specimen is opened to reveal velvety, brown-green mucosa without polyps or masses. The average wall thickness is 0.3 cm. There are no calculi identified. There is a possible lymph node identified measuring 0.6 x 0.6 x 0.4 cm. Hide Measuring Machine Operator sections of the fundus, lymph node, body and the cystic duct margin are submitted in A1. ([facility]; 03/23/2020) [facility] 03/23/2020 1817 Local . 02 Pathologist provided ICD-10: K81.1, R59.0 . 02 CPT . 867855 Specimen Comment: A courtesy copy of this report has been sent to [phone] Specimen Comment: [phone] Specimen Comment: Report sent to / Performed at: [address], [place], [place] [id number] MD Darrel Scott MD Phone: [phone] Performed at: 02 [facility] [address] [place], [place] [id number] MD Rafal Cuevas MD Phone: [phone]
== END 2020-03-23 10:15 | disposition home or self-care (01) ==
LOC: SURG 06:16
PROVIDERS: ATTEND Surgery
DX: K82.8 Other specified diseases of gallbladder (principal); K81.1 Chronic cholecystitis; K21.9 Gastro-esophageal reflux disease without esophagitis; F32.9 Major depressive disorder, single episode, unspecified; Z90.710 Acquired absence of both cervix and uterus; Z98.890 Other specified postprocedural states; Z79.899 Other long term (current) drug therapy; Z72.89 Other problems related to lifestyle; Z88.8 Allergy status to other drugs, medicaments and biological substances
CPT/HCPCS: 47563; 74300; J0690; J1100; J1885; J2250; J2405; J2704; J2710; J3010; J3490; Q9967